=== PATIENT | male | born 2000 | race Caucasian/White ===

== ENCOUNTER 2022-10-01 05:34 | Emergency (ER) | payer OTHER ==
[~2022-10-01] VITALS: Ht 180.3 cm; Wt 97.5 kg
[~2022-10-01 05:34] MED LIST: ALBU90OI61 INH; Crutch1 EACH MISC
[2022-10-01 05:50] VITALS: BP 120/88
== END 2022-10-01 09:38 | disposition home or self-care (01) ==
LOC: ER 05:34
DX: M79.661 Pain in right lower leg (principal); J45.909 Unspecified asthma, uncomplicated; Z79.899 Other long term (current) drug therapy; W50.0XXA Accidental hit or strike by another person, initial encounter
CPT/HCPCS: 73590; 99283-25